=== PATIENT | female | born 1960 | race Caucasian/White ===

== ENCOUNTER 2024-07-29 22:44 | Inpatient (IN) ==
--- NOTE | 2024-07-29 23:05 | DR.SOBA ---
HPI Time Seen Time Seen by Provider: 07/29/24 23:04 HPI Comment HPI Comment: History as below. Complaints Chief Complaint Doctors Comments: Patient is 63yr old female in ER with Increasing SOB and low oxygen saturation. Patient have history of COPD on home oxygen 2 LPM. She has not been feeling well for few days. Patient have slight productive cough and congestion. She denies fever and vomiting. Chief Complaint:: Patient arrives to ED via pov with shortness of breath. Noted home oxygen to be in place at 2 lpm. Patient states she has been feeling bad over the past few days. states patients spo2 was noted to be in the 50's at home. COVID-19 Coronavirus risk:travel/contact w/high risk person: No Has patient experienced Coronavirus symptoms: Yes Coronavirus symptoms experienced: Coughing and Shortness of Breath Reviewed Nurses Notes Reviewed: Yes Source History Provided: Patient and Family Member Mode of Arrival Mode of Arrival: Wheelchair Timing Onset of Chief Complaint: 07/27/24 PMH PMH Past Medical History: Yes Past Medical History: COPD, Diabetes, Dyslipidemia, Hypertension and Hypothyroidism Past Surgical History: Yes Surgical History: Thyroidectomy Family History History of Family Medical Conditions: No Social History Does any household member use tobacco: No Alcohol Use: None Do you use any recreational Drugs:: No Lives With: Family Lives Where: Home Travel Risk Coronavirus risk:travel/contact w/high risk person: No Has patient experienced Coronavirus symptoms: Yes Coronavirus symptoms experienced: Coughing and Shortness of Breath Infectious screening In the last 2 months have you had wt loss of >10#?: NO Have you had fever, night sweats or hemotysis?: No Have you traveled outside the country in the last 6 months?: No Isolation: Standard ROS Review of Systems Constitutional: Weakness and Fatigue; negative Fever Eyes: No Symptoms Reported ENTM: No Symptoms Reported Respiratoy: Moist Cough, Short of Breath and Wheezing Cardiovascular: Chest Pain (TIGHTNESS.) Gastrointestinal/Abdominal: Nausea; negative Abdominal Pain, Diarrhea or Vomiti ng Genitourinary: No Symptoms Reported; negative Dysuria Neurological: Headache, Weakness and Dizziness Musculoskeletal: No Symptoms Reported; negative Muscle Pain Integumentary: No Symptoms Reported; negative Rash Hematologic/Lymphatic: Easy Bruising Endocrine: No Symptoms Reported; negative Increased Thirst or Increased Urine Psychiatric: No Symptoms Reported All Other Systems: Reviewed and Negative PE Vital Signs Vitals: Vital Signs Temperature 97.7 F Pulse Rate 87 Pulse Rate 93 Pulse Rate 96 Pulse Rate 103 Pulse Rate 102 Pulse Rate 104 Pulse Rate 100 Pulse Rate 106 Pulse Rate 104 Pulse Rate 115 Respiratory Rate 40 Respiratory Rate 37 Respiratory Rate 39 Respiratory Rate 36 Respiratory Rate 40 Respiratory Rate 38 Respiratory Rate 30 Respiratory Rate 22 Respiratory Rate 22 Respiratory Rate 18 Blood Pressure 108/71 Blood Pressure 143/63 Blood Pressure 173/66 Blood Pressure 135/90 Blood Pressure 135/90 Blood Pressure 135/90 O2 Sat by Pulse Oximetry 100 O2 Sat by Pulse Oximetry 100 O2 Sat by Pulse Oximetry 100 O2 Sat by Pulse Oximetry 92 O2 Sat by Pulse Oximetry 91 O2 Sat by Pulse Oximetry 90 O2 Sat by Pulse Oximetry 96 O2 Sat by Pulse Oximetry 92 O2 Sat by Pulse Oximetry 99 O2 Sat by Pulse Oximetry 52 General Limitations: No Limitations General Appearance: Alert and In Distress Head Head Exam: Normal Inspection Eyes Eye exam: Normal Appearance and PERRL; negative Scleral Icterus or Conjunctival Injection ENT ENT Exam: Normal Exam, Normal Oropharynx, Normal External Ear Exam and TM's Normal Bilaterally Neck Neck Exam: Normal Inspection; negative Trachea Midline Respiratory Respiratory Exam: Normal Lung Sounds Bilat, Accessory Muscle Use and Respiratory Distress; negative Chest Wall Tenderness Respiratory Exam: Bilateral: Wheezing and Bilateral: Rhonchi Cardiovascular Cardiovascular Exam: Regular Rate, Normal Rhythm and Normal Heart Sounds; negative Systolic Murmur or Diastolic Murmur Abdominal Exam Abdominal Exam: Normal Inspection, Normal Bowel Sounds and Soft; negative Tenderness Extremities Extremities Exam: Normal Capillary Refill and Edema (2 plus. ) Back Back Exam: negative (R) CVA Tenderness or (L) CVA Tenderness Neurologic Neurological Exam: Alert; negative Oriented X3 (oriented to person and place.) or Motor Sensory Deficit Psychiatric Psychiatric Exam: Normal Affect and Normal Mood Skin Skin Exam: Warm and Intact MDM Differential Diagnosis Differential Diagnosis: Bronchitis, CHF, COPD, Hyponatremia, Pneumonia, Pneumothorax, Respiratory Insufficiency, Sinusitis and URI COURSE Treatment Treatment: See orders done while patient was in ER. Labs, EKG and X-ray discus sed. Patient placed on bi pap. Solumedrol IV given. Patient is admitted to hospital for further management. Consultation Consultation Comments: Discussed Patient with Dr. Gu. He will admit patient. Education/Counseling Education/Counseling: Patient and Family Educated On: Treatment and Diagnosis ROR Labs Reviewed Laboratory Results Reviewed?: Yes 07/31/24 05:14 07/31/24 05:14 Laboratory: WBC 11.7 X10^3/uL (3.6-10.0) H 07/29/24 23:10 RBC 4.18 X10^6/uL (3.5-5.4) 07/29/24 23:10 Hgb 12.8 g/dL (12.0-16.0) 07/29/24 23:10 Hct 39.7 % (36.0-47.0) 07/29/24 23:10 MCV 95.0 fL (80.0-100.0) 07/29/24 23:10 MCH 30.6 pg (27.0-34.0) 07/29/24 23:10 MCHC 32.3 g/dL (33.0-35.0) L 07/29/24 23:10 RDW 14.6 % (11.6-16.5) 07/29/24 23:10 Plt Count 254 X10^3/uL (150.0-450.0) 07/29/24 23:10 MPV 8.2 fL (7.4-11.0) 07/29/24 23:10 Neut % (Auto) 83.1 % (42.0-75.0) H 07/29/24 23:10 Lymph % (Auto) 10.1 % (21.0-51.0) L 07/29/24 23:10 [place] % (Auto) 5.5 % (0.0-13.0) 07/29/24 23:10 Eos % (Auto) 0.4 % (0.9-2.9) L 07/29/24 23:10 Baso % (Auto) 0.9 % (0.2-1.0) 07/29/24 23:10 Neut # (Auto) 9.7 x10^3/uL (2.2-4.8) H 07/29/24 23:10 Lymph # (Auto) 1.2 X10^3/uL (1.3-2.9) L 07/29/24 23:10 [place] # (Auto) 0.6 x10^3/uL (0.3-0.8) 07/29/24 23:10 Eos # (Auto) 0.0 x10^3/uL (0.0-0.2) 07/29/24 23:10 Baso # (Auto) 0.1 X10^3/uL (0.0-0.1) 07/29/24 23:10 Absolute Nucleated RBC 0.0 /100WBC 07/29/24 23:10 PT 12.6 SECONDS (11.8-14.3) 07/29/24 23:10 INR Target Range - 07/29/24 23:10 INR 0.96 (0.8-1.3) 07/29/24 23:10 APTT 23.1 SECONDS (22.9-36.5) 07/29/24 23:10 PTT Comment - 07/29/24 23:10 Sample Site R rad 07/29/24 23:37 ABG pH 7.270 (7.35-7.45) L 07/29/24 23:37 ABG pCO2 76.0 mmHg (35.0-45.0) H* 07/29/24 23:37 ABG pO2 55.0 mmHg (80.0-100.0) L 07/29/24 23:37 ABG HCO3 34.9 mmol/L (22-26) H* 07/29/24 23:37 ABG O2 Saturation 83.0 % (90-100) L* 07/29/24 23:37 ABG Base Excess 5.6 mmol/L (-2.0-2.0) H 07/29/24 23:37 Augustus Test Pos 07/29/24 23:37 A-a Gradient 78.0 mmHg 07/29/24 23:37 FiO2 32.0 07/29/24 23:37 Blood Gas Comments Mervin well mf 07/29/24 23:37 Sodium 141 mmol/L (136-145) 07/29/24 23:10 Corrected Sodium 142 mmol/L (136-145) 07/29/24 23:10 Potassium 4.6 mmol/L (3.5-5.1) 07/29/24 23:10 Chloride 101 mmol/L (98-107) 07/29/24 23:10 Carbon Dioxide 36.5 mmol/L (21-32) H 07/29/24 23:10 BUN 22 mg/dL (7-18) H 07/29/24 23:10 Creatinine 1.51 mg/dL (0.55-1.02) H 07/29/24 23:10 Est GFR (MDRD) Af Amer 45 (>60) L 07/29/24 23:10 Est GFR (MDRD) Non-Af 37 (>60) L 07/29/24 23:10 Glucose 154 mg/dL (65-99) H 07/29/24 23:10 Calcium 9.4 mg/dL (8.5-10.1) 07/29/24 23:10 Corrected Calcium TNP 07/29/24 23:10 Magnesium 1.8 mg/dL (2.0-2.9) L 07/29/24 23:10 Total Bilirubin 0.20 mg/dL (0.2-1.0) 07/29/24 23:10 AST 19 Units/L (15-37) 07/29/24 23:10 ALT 23 Units/L (12-78) 07/29/24 23:10 Alkaline Phosphatase 71 Units/L (46-116) 07/29/24 23:10 Creatine Kinase 101 Units/L (26-192) 07/29/24 23:10 Troponin I High Sens 15.0 ng/L (4.0-60.0) 07/29/24 23:10 B-Natriuretic Peptide 61.8 pg/mL (0-79) 07/30/24 00:05 Total Protein 7.9 g/dL (6.4-8.2) 07/29/24 23:10 Albumin 3.8 g/dL (3.4-5.0) 07/29/24 23:10 Globulin 4.1 g/dL (2.5-4.5) 07/29/24 23:10 Albumin/Globulin Ratio 0.9 Ratio (1.1-2.1) L 07/29/24 23:10 SARS-CoV-2 (PCR) Negative (NEGATIVE) 07/29/24 23:04 Influenza Type A (PCR) Negative (NEGATIVE) 07/29/24 23:04 Influenza Type B (PCR) Negative (NEGATIVE) 07/29/24 23:04 RSV (PCR) Negative (NEGATIVE) 07/29/24 23:04 XRAY XRAY Interpreted by: Radiologist (Report noted) and Self Opioid Opioid Risk Tool Age (Kulwinder box if 16-45): No History of Preadolescent Sexual Abuse: No Total: 0 Total Score Risk Category: Low Risk Copyright: Chava SESAY predicting aberrant behaviors Discharge Plan Diagnosis Discharge Problem: Acute respiratory distress, Hypercapnia, Hypoxia, COPD exacerbation Discharge Plan Patient Disposition: 09 ADMITTED INPATIENT Condition: Stable
--- NOTE | 2024-07-29 23:22 | RAD ---
EXAM:FRONTAL VIEW CHEST X-RAYHISTORY:COPD;COMPARISON:None. .br.br.br.br.br is within normal limits.The mediastinum is unremarkable.There is no evidence of pleural effusion or gross pneumothorax.The trachea is midline.IMPRESSION:No focal consolidation is seen.The heart size is normal.THIS IS AN ELECTRONICALLY VERIFIED FINAL REPORT07/29/2024 11:18 PM - Electronically signed by Harry Mccord MD
[2024-07-29 23:25] LABS: BASOPHILS # (AUTO) 0.1 X10^3/uL (0.0-0.1); BASOPHILS % (AUTO) 0.9 % (0.2-1.0); EOSINOPHILS % (AUTO) 0.4 % (0.9-2.9); HEMATOCRIT 39.7 % (36.0-47.0); HEMOGLOBIN 12.8 g/dL (12.0-16.0); LYMPHOCYTES # (AUTO) 1.2 X10^3/uL (1.3-2.9); LYMPHOCYTES % (AUTO) 10.1 % (21.0-51.0); MEAN CORPUSCULAR HEMOGLOBIN 30.6 pg (27.0-34.0); MEAN CORPUSCULAR HGB CONC 32.3 g/dL (33.0-35.0); MEAN PLATELET VOLUME 8.2 fL (7.4-11.0); MONOCYTES # (AUTO) 0.6 x10^3/uL (0.3-0.8); MONOCYTES % (AUTO) 5.5 % (0.0-13.0); NEUTROPHILS # (AUTO) 9.7 x10^3/uL (2.2-4.8); NEUTROPHILS % (AUTO) 83.1 % (42.0-75.0); PLATELET COUNT 254 X10^3/uL (150.0-450.0); RED BLOOD COUNT 4.18 X10^6/uL (3.5-5.4); RED CELL DISTRIBUTION WIDTH 14.6 % (11.6-16.5); WHITE BLOOD COUNT 11.7 X10^3/uL (3.6-10.0)
[2024-07-29 23:32] LABS: INR 0.96 (0.8-1.3)
[2024-07-29 23:35] LABS: ALANINE AMINOTRANSFERASE 23 Units/L (12-78); ALBUMIN 3.8 g/dL (3.4-5.0); ALKALINE PHOSPHATASE 71 Units/L (46-116); ASPARTATE AMINO TRANSFERASE 19 Units/L (15-37); BLOOD UREA NITROGEN 22 mg/dL (7-18); CALCIUM 9.4 mg/dL (8.5-10.1); CARBON DIOXIDE 36.5 mmol/L (21-32); CHLORIDE 101 mmol/L (98-107); COR NA(FOR HYPERGLY) 142 mmol/L (136-145); CREATINE KINASE 101 Units/L (26-192); CREATININE 1.51 mg/dL (0.55-1.02); GLUCOSE 154 mg/dL (65-99); MAGNESIUM 1.8 mg/dL (2.0-2.9); POTASSIUM 4.6 mmol/L (3.5-5.1); SODIUM 141 mmol/L (136-145); TOTAL PROTEIN 7.9 g/dL (6.4-8.2); eGFR NON BLACK RACES 37 (>60)
[2024-07-29 23:42] LABS: ABG BASE EXCESS 5.6 mmol/L (-2.0-2.0)
[2024-07-29 23:44] LABS: ABG ALLEN TEST POS; ABG HCO3 34.9 mmol/L (22-26)
[2024-07-30] MEDS: ROCEPHIN VIAL 1 GRAM IVP SCH (00:53)
[2024-07-30] MEDS: SOLU-Medrol 125 MG VIAL IVP ONE (01:06)
[2024-07-30 01:21] LABS: ABG BASE EXCESS 7.6 mmol/L (-2.0-2.0)
[2024-07-30 01:24] LABS: ABG ALLEN TEST POS; ABG HCO3 37.1 mmol/L (22-26)
[2024-07-30] MEDS ORDERED: PATIENT'S HOME MEDICATION (Ibandronate 150 mg tablet) PO SCH (01:51)
[2024-07-30] MEDS ORDERED: SOLU-Medrol 40 MG VIAL IVP PRN (01:51)
[2024-07-30 02:23] VITALS: BMI 36.5
[2024-07-30] MEDS: NS 1,000 ML IV 1,000 ML IV SCH (02:52)
[2024-07-30] MEDS ORDERED: CONSULT PHARMACY - POTASSIUM & MAGNESIUM XX SCH (03:00)
[2024-07-30] MEDS: MAG-OX TAB PO SCH (03:02)
--- NOTE | 2024-07-30 05:56 | EKG ---
Test Reason : copd Blood Pressure : */* mmHG Vent. Rate : 84 BPM Atrial Rate : 84 BPM P-R Int : 132 ms QRS Dur : 76 ms QT Int : 364 ms P-R-T Axes : 80 70 86 degrees QTc Int : 430 ms Normal sinus rhythm with sinus arrhythmia Septal infarct , age undetermined Abnormal ECG No previous ECGs available Confirmed by Robert Arrington MD ([id number]) on 07/30/2024 7:33:02 AM Referred By: Confirmed By: Robert Arrington MD
[2024-07-30] MEDS: DUONEB 0.5 MG/3 MG (3 mL) NEB SCH (05:59)
[2024-07-30] MEDS ORDERED: FORTAZ or TAZICEF VIAL INJ 500 MG in NS 25 ML IV 25 ML IV SCH (06:00)
[2024-07-30 06:10] LABS: ABG BASE EXCESS 10.9 mmol/L (-2.0-2.0)
[2024-07-30 06:12] LABS: ABG ALLEN TEST POS
[2024-07-30 06:22] LABS: BASOPHILS % (AUTO) 0.1 % (0.2-1.0); EOSINOPHILS % (AUTO) 0.1 % (0.9-2.9); HEMATOCRIT 38.1 % (36.0-47.0); HEMOGLOBIN 12.7 g/dL (12.0-16.0); LYMPHOCYTES # (AUTO) 0.5 X10^3/uL (1.3-2.9); LYMPHOCYTES % (AUTO) 4.3 % (21.0-51.0); MEAN CORPUSCULAR HEMOGLOBIN 31.4 pg (27.0-34.0); MEAN CORPUSCULAR HGB CONC 33.4 g/dL (33.0-35.0); MEAN CORPUSCULAR VOLUME 93.8 fL (80.0-100.0); MEAN PLATELET VOLUME 8.5 fL (7.4-11.0); MONOCYTES # (AUTO) 0.1 x10^3/uL (0.3-0.8); MONOCYTES % (AUTO) 1.2 % (0.0-13.0); NEUTROPHILS # (AUTO) 10.3 x10^3/uL (2.2-4.8); NEUTROPHILS % (AUTO) 94.3 % (42.0-75.0); PLATELET COUNT 239 X10^3/uL (150.0-450.0); RED BLOOD COUNT 4.06 X10^6/uL (3.5-5.4); RED CELL DISTRIBUTION WIDTH 14.5 % (11.6-16.5); WHITE BLOOD COUNT 10.9 X10^3/uL (3.6-10.0)
[2024-07-30 06:43] LABS: BAND NEUTROPHILS % 5 % (0-10); PLATELET MORPHOLOGY COMMENT NORMAL (NORMAL)
[2024-07-30 06:44] LABS: STOMATOCYTES 1+
[2024-07-30 07:06] LABS: CALCIUM 9.6 mg/dL (8.5-10.1); CARBON DIOXIDE 34.3 mmol/L (21-32); CREATININE 1.43 mg/dL (0.55-1.02); POTASSIUM 5.3 mmol/L (3.5-5.1)
[2024-07-30] MEDS: SOLU-Medrol 125 MG VIAL ONE (07:45)
[2024-07-30] MEDS: CRESTOR TAB 10 MG PO SCH ×2 (08:32→20:42)
[2024-07-30] MEDS: ZESTRIL TAB 40 MG PO SCH (08:32)
[2024-07-30] MEDS: NORVASC TAB 5 MG PO SCH (08:32)
[2024-07-30] MEDS: FARXIGA PO SCH (08:33)
[2024-07-30] MEDS: LOVENOX INJ 40 MG SYR SC SCH (08:40)
[2024-07-30] MEDS: THYROID 90 MG PO SCH (08:55)
[2024-07-30] MEDS: PULMICORT NEB TX 0.5 MG NEB SCH (09:34)
[2024-07-30] MEDS: ZITHROMAX INJ 500 MG VIAL 500 MG in NS 250 ML IV 250 ML IV SCH (09:52)
--- NOTE | 2024-07-30 09:54 | DR.H&P ---
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 She uses 2L continuous O2 at home and noted to have low sats in the 50s. She reports feeling sick for the past few days with URI symptoms including productive cough and congestion. She recently moved in the area and is getting established with PCP, cardio and pulmonology. She also reports abdominal bloating and constipation. ER work up showed ABG with hypoxia and hypercapnia. She was placed on BiPAP. She was started on IV antibiotics, nebs and steroids. Labs showed neg trop, BNP and Resp panel. CXR was negative for acute changes. She is currently on 4L NC and is feeling better. Labs/imaging reviewed: - WBC 10.9 Hgb 12.7 K 5.3 BUN/Cr 23/1.43 Trop (-) BNP (-) -AB.36/69/79/39 -CXR: neg Plan: Wean O2 as tolerated to keep sats between 90-92%, BiPAP prn. Continue nebs, pulmicort and IS. Continue Rocephin and steroids, add Azithromycin. Follow pending cultures. Replace electrolytes prn. Repeat K level this afternoon. Resume home medications. SSI coverage. PT/OT as tolerated. Will order KUB. Monitor AM labs/imaging. Time spent for clinical assessment, reviewing labs/imaging, physical exam, decision making and documentation greater than 45 mins. Past Medical History Past Medical History: COPD, Diabetes, Dyslipidemia, Hypertension and Hypothyroidism Past Surgical History Surgical History: Thyroidectomy Family History Family Medical History: Cancer and Hypertension Social History Does patient currently use any type of tobacco product: No Type of Tobacco Use: None Does any household member use tobacco: No Alcohol Use: None Drug Use: None Medications Home Medications: Home Medications Medication Instructions Recorded Confirmed Type amlodipine 5 mg tablet 5 mg PO DAILY 07/29/24 07/29/24 History dapagliflozin propanediol 5 mg 5 mg PO DAILY 07/29/24 07/29/24 History tablet (Farxiga) fluticasone fur. 100 mcg-umeclid inhalation DAILY 07/29/24 History 62.5 mcg-vilant 25 mcg inhalat.powder (Trelegy Ellipta) ibandronate 150 mg tablet 150 mg PO MONTHLY 07/29/24 07/29/24 History lisinopril 40 mg tablet 40 mg PO DAILY 07/29/24 07/29/24 History rosuvastatin 10 mg tablet 10 mg PO DAILY 07/29/24 07/29/24 History thyroid (pork) 90 mg tablet ([employer] 90 mg PO DAILY 07/29/24 07/29/24 History Thyroid) aspirin 81 mg tablet 81 mg PO DAILY 07/30/24 07/30/24 History cholecalciferol (vitamin D3) 50 50 mcg PO HS 07/30/24 07/30/24 History mcg (2,000 unit) capsule (Vitamin D3) Allergies Allergies Allergy/AdvReac Type Severity Reaction Status Date / Time No Known Drug Allergies AdvReac Verified 07/29/24 23:04 [NKDA] Labs 07/30/24 05:22 07/30/24 05:22 Labs: Laboratory WBC 10.9 X10^3/uL (3.6-10.0) H 07/30/24 05:22 RBC 4.06 X10^6/uL (3.5-5.4) 07/30/24 05:22 Hgb 12.7 g/dL (12.0-16.0) 07/30/24 05:22 Hct 38.1 % (36.0-47.0) 07/30/24 05:22 MCV 93.8 fL (80.0-100.0) 07/30/24 05:22 MCH 31.4 pg (27.0-34.0) 07/30/24 05:22 MCHC 33.4 g/dL (33.0-35.0) 07/30/24 05:22 RDW 14.5 % (11.6-16.5) 07/30/24 05:22 Plt Count 239 X10^3/uL (150.0-450.0) 07/30/24 05:22 Plt Count Comment Adequate (ADEQUATE) 07/30/24 05:22 MPV 8.5 fL (7.4-11.0) 07/30/24 05:22 Neut % (Auto) 94.3 % (42.0-75.0) H 07/30/24 05:22 Lymph % (Auto) 4.3 % (21.0-51.0) L 07/30/24 05:22 [place] % (Auto) 1.2 % (0.0-13.0) 07/30/24 05:22 Eos % (Auto) 0.1 % (0.9-2.9) L 07/30/24 05:22 Baso % (Auto) 0.1 % (0.2-1.0) L 07/30/24 05:22 Neut # (Auto) 10.3 x10^3/uL (2.2-4.8) H 07/30/24 05:22 Lymph # (Auto) 0.5 X10^3/uL (1.3-2.9) L 07/30/24 05:22 [place] # (Auto) 0.1 x10^3/uL (0.3-0.8) L 07/30/24 05:22 Eos # (Auto) 0.0 x10^3/uL (0.0-0.2) 07/30/24 05:22 Baso # (Auto) 0.0 X10^3/uL (0.0-0.1) 07/30/24 05:22 Absolute Nucleated RBC 0.0 /100WBC 07/30/24 05:22 Total Counted 100 07/30/24 05:22 Neutrophils % (Manual) 86 % (39-76) H 07/30/24 05:22 Band Neutrophils % 5 % (0-10) 07/30/24 05:22 Lymphocytes % (Manual) 7 % (13-43) L 07/30/24 05:22 Monocytes % (Manual) 2 % (4-9) L 07/30/24 05:22 Plt Morphology Comment Normal (NORMAL) 07/30/24 05:22 RBC Morphology Abnormal (NORMAL) A 07/30/24 05:22 Stomatocytes 1+ A 07/30/24 05:22 PT 12.6 SECONDS (11.8-14.3) 07/29/24 23:10 INR Target Range - 07/29/24 23:10 INR 0.96 (0.8-1.3) 07/29/24 23:10 APTT 23.1 SECONDS (22.9-36.5) 07/29/24 23:10 PTT Comment - 07/29/24 23:10 Sample Site Rrad 07/30/24 06:10 ABG pH 7.360 (7.35-7.45) 07/30/24 06:10 ABG pCO2 69.0 mmHg (35.0-45.0) H* 07/30/24 06:10 ABG pO2 79.0 mmHg (80.0-100.0) L 07/30/24 06:10 ABG HCO3 39.0 mmol/L (22-26) H* 07/30/24 06:10 ABG O2 Saturation 95.0 % (90-100) 07/30/24 06:10 ABG Base Excess 10.9 mmol/L (-2.0-2.0) H 07/30/24 06:10 Augustus Test Pos 07/30/24 06:10 A-a Gradient 49.0 mmHg 07/30/24 06:10 FiO2 30.0 07/30/24 06:10 Blood Gas Comments Mervin abg well-mtf 07/30/24 06:10 Sodium 140 mmol/L (136-145) 07/30/24 05:22 Corrected Sodium 141 mmol/L (136-145) 07/30/24 05:22 Potassium 5.3 mmol/L (3.5-5.1) H 07/30/24 05:22 Chloride 102 mmol/L (98-107) 07/30/24 05:22 Carbon Dioxide 34.3 mmol/L (21-32) H 07/30/24 05:22 BUN 23 mg/dL (7-18) H 07/30/24 05:22 Creatinine 1.43 mg/dL (0.55-1.02) H 07/30/24 05:22 Est GFR (MDRD) Af Amer 48 (>60) L 07/30/24 05:22 Est GFR (MDRD) Non-Af 39 (>60) L 07/30/24 05:22 Glucose 123 mg/dL (65-99) H 07/30/24 05:22 POC Glucose (mg/dL) 130 mg/dL (65-99) H 07/30/24 05:14 Calcium 9.6 mg/dL (8.5-10.1) 07/30/24 05:22 Corrected Calcium TNP 07/29/24 23:10 Magnesium 1.8 mg/dL (2.0-2.9) L 07/29/24 23:10 Total Bilirubin 0.20 mg/dL (0.2-1.0) 07/29/24 23:10 AST 19 Units/L (15-37) 07/29/24 23:10 ALT 23 Units/L (12-78) 07/29/24 23:10 Alkaline Phosphatase 71 Units/L (46-116) 07/29/24 23:10 Creatine Kinase 101 Units/L (26-192) 07/29/24 23:10 Troponin I High Sens 15.0 ng/L (4.0-60.0) 07/29/24 23:10 B-Natriuretic Peptide 61.8 pg/mL (0-79) 07/30/24 00:05 Total Protein 7.9 g/dL (6.4-8.2) 07/29/24 23:10 Albumin 3.8 g/dL (3.4-5.0) 07/29/24 23:10 Globulin 4.1 g/dL (2.5-4.5) 07/29/24 23:10 Albumin/Globulin Ratio 0.9 Ratio (1.1-2.1) L 07/29/24 23:10 SARS-CoV-2 (PCR) Negative (NEGATIVE) 07/29/24 23:04 Influenza Type A (PCR) Negative (NEGATIVE) 07/29/24 23:04 Influenza Type B (PCR) Negative (NEGATIVE) 07/29/24 23:04 RSV (PCR) Negative (NEGATIVE) 07/29/24 23:04 Review of Systems Constitutional: Weakness Eyes: No Symptoms Reported ENT: No Symptoms Reported Respiratory: Cough and SOB with Excertion Cardiovascular: No Symptoms Reported Gastrointestinal: Constipation Genitourinary: No Symptoms Reported Musculoskeletal: No Symptoms Reported Skin: No Symptoms Reported Neurological: No Symptoms Reported Physical Exam Vital Signs: Vital Signs Temperature 98.0 F Temperature 97.6 F Temperature 98.0 F Pulse Rate [Brachial] 89 Pulse Rate [Brachial] 84 Pulse Rate [Brachial] 97 Pulse Rate 86 Respiratory Rate 18 Respiratory Rate 16 Respiratory Rate 16 Blood Pressure [Left Arm] 117/77 Blood Pressure [Left Arm] 123/64 Blood Pressure [Left Arm] 135/63 O2 Sat by Pulse Oximetry 95 O2 Sat by Pulse Oximetry 96 O2 Sat by Pulse Oximetry 96 Oriented: Normal Eyes: Normal Throat: Normal Respiratory: Diminished Throughout Cardiovascular: Normal Auscultation: Bowel Sounds: Normal Palpation: Normal Tenderness: Normal Skin: Decreased [place] Musculoskeletal: Normal Psychiatric: Normal Mood Description: Calm Affect: Normal Speech Pattern: Clear and Appropriate Assessment/Plan (1) Acute and chronic respiratory failure: Qualifiers: Respiratory failure complication: hypoxia and hypercapnia Qualified Code(s): J96.21 - Acute and chronic respiratory failure with hypoxia; J96.22 - Acute and chronic respiratory failure with hypercapnia Status: Acute (2) COPD exacerbation: Status: Acute (3) Hyperkalemia: Status: Acute (4) Dehydration: Status: Acute (5) HTN (hypertension): Qualifiers: Hypertension type: primary hypertension Qualified Code(s): I10 - Essential (primary) hypertension Status: Chronic (6) Hypothyroidism: Qualifiers: Hypothyroidism type: acquired Qualified Code(s): E03.9 - Hypothyroidism, unspecified Status: Chronic (7) Constipation: Qualifiers: Constipation type: slow transit constipation Qualified Code(s): K59.01 - Slow transit constipation Status: Chronic (8) Type 2 diabetes mellitus: Qualifiers: Diabetes mellitus alf insulin use: with supervisor intermediates use Diabetes mellitus complication status: with hyperglycemia Qualified Code(s): E11.65 - Type 2 diabetes mellitus with hyperglycemia; Z79.4 - longterm (current) use of insulin Status: Chronic Review H&P Reviewed: Yes Patient was examined?: Yes
[2024-07-30] MEDS: NovoLIN R (or HumuLIN R) SUBCUT PRN (10:53)
[2024-07-30] MEDS: SNACK - Diabetic Appropriate PO SCH (20:15)
[2024-07-30] MEDS: TYLENOL 325 MG TAB PO PRN (20:43)
[2024-07-30] MEDS ORDERED: XOPENEX 1.25 MG/3 ML NEBULE NEB ONE (21:03)
[2024-07-30] MEDS: XOPENEX 1.25 MG/3 ML NEBULE NEB SCH (21:32)
[2024-07-31 05:49] LABS: BASOPHILS % (AUTO) 0.2 % (0.2-1.0); EOSINOPHILS % (AUTO) 0.1 % (0.9-2.9); HEMATOCRIT 35.9 % (36.0-47.0); HEMOGLOBIN 11.7 g/dL (12.0-16.0); LYMPHOCYTES # (AUTO) 1.3 X10^3/uL (1.3-2.9); LYMPHOCYTES % (AUTO) 12.1 % (21.0-51.0); MEAN CORPUSCULAR HEMOGLOBIN 30.7 pg (27.0-34.0); MEAN CORPUSCULAR HGB CONC 32.6 g/dL (33.0-35.0); MEAN CORPUSCULAR VOLUME 94.1 fL (80.0-100.0); MEAN PLATELET VOLUME 8.8 fL (7.4-11.0); MONOCYTES # (AUTO) 0.8 x10^3/uL (0.3-0.8); MONOCYTES % (AUTO) 7.2 % (0.0-13.0); NEUTROPHILS # (AUTO) 8.6 x10^3/uL (2.2-4.8); NEUTROPHILS % (AUTO) 80.4 % (42.0-75.0); PLATELET COUNT 240 X10^3/uL (150.0-450.0); RED BLOOD COUNT 3.82 X10^6/uL (3.5-5.4); RED CELL DISTRIBUTION WIDTH 14.7 % (11.6-16.5); WHITE BLOOD COUNT 10.6 X10^3/uL (3.6-10.0)
[2024-07-31] MEDS: THYROID 90 MG PO SCH (05:49)
--- NOTE | 2024-07-31 05:52 | RAD ---
EXAM:KUBHISTORY:constipation ;COMPARISON:NoneFINDINGS:Evaluation of the abdomen demonstrates a nonobstructive bowel gas pattern. No evidence of pneumoperitoneum. No pathologic soft tissue calcification. No acute osseous abnormality.IMPRESSION:No acute abdominal process.THIS IS AN ELECTRONICALLY VERIFIED FINAL REPORT07/31/2024 5:49 AM - Electronically signed by Ector Alejo MD
[2024-07-31 06:03] LABS: ALANINE AMINOTRANSFERASE 25 Units/L (12-78); ALBUMIN 3.4 g/dL (3.4-5.0); ALKALINE PHOSPHATASE 60 Units/L (46-116); ASPARTATE AMINO TRANSFERASE 19 Units/L (15-37); BLOOD UREA NITROGEN 28 mg/dL (7-18); CALCIUM 9.1 mg/dL (8.5-10.1); CARBON DIOXIDE 36.5 mmol/L (21-32); CHLORIDE 104 mmol/L (98-107); CREATININE 1.33 mg/dL (0.55-1.02); GLUCOSE 99 mg/dL (65-99); POTASSIUM 4.3 mmol/L (3.5-5.1); SODIUM 142 mmol/L (136-145); eGFR NON BLACK RACES 43 (>60)
[2024-07-31] MEDS: SOLU-Medrol 40 MG VIAL IVP SCH (08:21)
--- NOTE | 2024-07-31 09:51 | PCM.PROG ---
Progress Note Progress Note for Day of Date of Exam: 07/31/24 Subjective Subjective: Patient seen at bedside, no acute events overnight. She is admitted for COPD exacerbation and respiratory failure. She is on 3L NC at this time. She reports having a lot of productive cough. She did ambulate to the bathroom but still feels SOB. She is on IV antibiotics and steroids. KUB was negative. Echo is pending. Labs/imaging reviewed: -WBC 10.6 Hgb 11.7 Plt 240 K 4.3 BUN/Cr 28/1.33 -KUB (-) -Sputum Cx pending Plan: Wean O2 as tolerated. Patient does use 2L at home. Continue IV antibiotics and steroids. Nebs and pulmicort prn. Follow pending cultures. Follow echo results. Continue home medications. Ambulate prn. Replace electrolytes prn. Monitor AM labs/imaging. Past Medical Family Social History Allergies: Allergies No Known Drug Allergies [NKDA] Adverse Reaction (Verified 07/29/24 23:04) Vital Signs and I&O's Vital Signs: Vital Signs Temperature 97.3 F Temperature 98.0 F Pulse Rate [Brachial] 83 Pulse Rate [Brachial] 69 Respiratory Rate 18 Respiratory Rate 18 Blood Pressure [Left Arm] 122/62 Blood Pressure [Left Arm] 126/60 O2 Sat by Pulse Oximetry 100 O2 Sat by Pulse Oximetry 97 Intake and Output: Intake & Output 07/28/24 07/29/24 07/30/24 07/31/24 23:59 23:59 23:59 23:59 Intake Total 1443 / 1443 251 / 251 Output Total 1300 / 1300 Balance 143 / 143 251 / 251 Physical Exam Oriented: Normal Eyes: Normal Throat: Normal Respiratory: Generalized, Diminished and Wheezes Cardiovascular: Normal Auscultation: Bowel Sounds: Normal Palpation: Normal Tenderness: Normal Skin: Decreased Turgur Musculoskeletal: Normal Psychiatric: Normal Mood Description: Calm Affect: Normal Speech Pattern: Clear and Appropriate Laboratory and Diagnostics 07/31/24 05:14 07/31/24 05:14 Labs: 07/30/24 09:58 Sputum - Expectorated Sputum Sputum Culture - Preliminary 07/30/24 09:58 Sputum - Expectorated Sputum - Final Laboratory WBC 10.6 X10^3/uL (3.6-10.0) H 07/31/24 05:14 RBC 3.82 X10^6/uL (3.5-5.4) 07/31/24 05:14 Hgb 11.7 g/dL (12.0-16.0) L 07/31/24 05:14 Hct 35.9 % (36.0-47.0) L 07/31/24 05:14 MCV 94.1 fL (80.0-100.0) 07/31/24 05:14 MCH 30.7 pg (27.0-34.0) 07/31/24 05:14 MCHC 32.6 g/dL (33.0-35.0) L 07/31/24 05:14 RDW 14.7 % (11.6-16.5) 07/31/24 05:14 Plt Count 240 X10^3/uL (150.0-450.0) 07/31/24 05:14 Plt Count Comment Adequate (ADEQUATE) 07/30/24 05:22 MPV 8.8 fL (7.4-11.0) 07/31/24 05:14 Neut % (Auto) 80.4 % (42.0-75.0) H 07/31/24 05:14 Lymph % (Auto) 12.1 % (21.0-51.0) L 07/31/24 05:14 Banks % (Auto) 7.2 % (0.0-13.0) 07/31/24 05:14 Eos % (Auto) 0.1 % (0.9-2.9) L 07/31/24 05:14 Baso % (Auto) 0.2 % (0.2-1.0) 07/31/24 05:14 Neut # (Auto) 8.6 x10^3/uL (2.2-4.8) H 07/31/24 05:14 Lymph # (Auto) 1.3 X10^3/uL (1.3-2.9) 07/31/24 05:14 Banks # (Auto) 0.8 x10^3/uL (0.3-0.8) 07/31/24 05:14 Eos # (Auto) 0.0 x10^3/uL (0.0-0.2) 07/31/24 05:14 Baso # (Auto) 0.0 X10^3/uL (0.0-0.1) 07/31/24 05:14 Absolute Nucleated RBC 0.1 /100WBC 07/31/24 05:14 Total Counted 100 07/30/24 05:22 Neutrophils % (Manual) 86 % (39-76) H 07/30/24 05:22 Band Neutrophils % 5 % (0-10) 07/30/24 05:22 Lymphocytes % (Manual) 7 % (13-43) L 07/30/24 05:22 Monocytes % (Manual) 2 % (4-9) L 07/30/24 05:22 Plt Morphology Comment Normal (NORMAL) 07/30/24 05:22 RBC Morphology Abnormal (NORMAL) A 07/30/24 05:22 Stomatocytes 1+ A 07/30/24 05:22 PT 12.6 SECONDS (11.8-14.3) 07/29/24 23:10 INR Target Range - 07/29/24 23:10 INR 0.96 (0.8-1.3) 07/29/24 23:10 APTT 23.1 SECONDS (22.9-36.5) 07/29/24 23:10 PTT Comment - 07/29/24 23:10 Sample Site Rrad 07/30/24 06:10 ABG pH 7.360 (7.35-7.45) 07/30/24 06:10 ABG pCO2 69.0 mmHg (35.0-45.0) H* 07/30/24 06:10 ABG pO2 79.0 mmHg (80.0-100.0) L 07/30/24 06:10 ABG HCO3 39.0 mmol/L (22-26) H* 07/30/24 06:10 ABG O2 Saturation 95.0 % (90-100) 07/30/24 06:10 ABG Base Excess 10.9 mmol/L (-2.0-2.0) H 07/30/24 06:10 Augustus Test Pos 07/30/24 06:10 A-a Gradient 49.0 mmHg 07/30/24 06:10 FiO2 30.0 07/30/24 06:10 Blood Gas Comments Mervin abg well-mtf 07/30/24 06:10 Sodium 142 mmol/L (136-145) 07/31/24 05:14 Corrected Sodium TNP 07/31/24 05:14 Potassium 4.3 mmol/L (3.5-5.1) 07/31/24 05:14 Chloride 104 mmol/L (98-107) 07/31/24 05:14 Carbon Dioxide 36.5 mmol/L (21-32) H 07/31/24 05:14 BUN 28 mg/dL (7-18) H 07/31/24 05:14 Creatinine 1.33 mg/dL (0.55-1.02) H 07/31/24 05:14 Est GFR (MDRD) Af Amer 52 (>60) L 07/31/24 05:14 Est GFR (MDRD) Non-Af 43 (>60) L 07/31/24 05:14 Glucose 99 mg/dL (65-99) 07/31/24 05:14 POC Glucose (mg/dL) 92 mg/dL (65-99) 07/31/24 05:18 Calcium 9.1 mg/dL (8.5-10.1) 07/31/24 05:14 Corrected Calcium TNP 07/31/24 05:14 Magnesium 2.3 mg/dL (2.0-2.9) 07/31/24 05:14 Total Bilirubin 0.20 mg/dL (0.2-1.0) 07/31/24 05:14 AST 19 Units/L (15-37) 07/31/24 05:14 ALT 25 Units/L (12-78) 07/31/24 05:14 Alkaline Phosphatase 60 Units/L (46-116) 07/31/24 05:14 Creatine Kinase 101 Units/L (26-192) 07/29/24 23:10 Troponin I High Sens 15.0 ng/L (4.0-60.0) 07/29/24 23:10 B-Natriuretic Peptide 61.8 pg/mL (0-79) 07/30/24 00:05 Total Protein 7.0 g/dL (6.4-8.2) 07/31/24 05:14 Albumin 3.4 g/dL (3.4-5.0) 07/31/24 05:14 Globulin 3.6 g/dL (2.5-4.5) 07/31/24 05:14 Albumin/Globulin Ratio 0.9 Ratio (1.1-2.1) L 07/31/24 05:14 SARS-CoV-2 (PCR) Negative (NEGATIVE) 07/29/24 23:04 Influenza Type A (PCR) Negative (NEGATIVE) 07/29/24 23:04 Influenza Type B (PCR) Negative (NEGATIVE) 07/29/24 23:04 RSV (PCR) Negative (NEGATIVE) 07/29/24 23:04 Resp Viral Panel (PCR) See scanned report 07/30/24 09:47 Plan (1) Acute and chronic respiratory failure: Status: Acute Qualifiers: Respiratory failure complication: hypoxia and hypercapnia Qualified Code(s): J96.21 - Acute and chronic respiratory failure with hypoxia; J96.22 - Acute and chronic respiratory failure with hypercapnia (2) COPD exacerbation: Status: Acute (3) Hyperkalemia: Status: Acute (4) Dehydration: Status: Acute (5) HTN (hypertension): Status: Chronic Qualifiers: Hypertension type: primary hypertension Qualified Code(s): I10 - Essential (primary) hypertension (6) Hypothyroidism: Status: Chronic Qualifiers: Hypothyroidism type: acquired Qualified Code(s): E03.9 - Hy pothyroidism, unspecified (7) Constipation: Status: Chronic Qualifiers: Constipation type: slow transit constipation Qualified Code(s): K59.01 - Slow transit constipation (8) Type 2 diabetes mellitus: Status: Chronic Qualifiers: Diabetes mellitus terminal manager insulin use: with terminal manager use Diabetes me llitus complication status: with hyperglycemia Qualified Code(s): E11.65 - Type 2 diabetes mellitus with hyperglycemia; Z79.4 - long-term (current) use of insulin
[2024-08-01 05:59] LABS: BASOPHILS % (AUTO) 0.2 % (0.2-1.0); HEMATOCRIT 36.9 % (36.0-47.0); HEMOGLOBIN 12.1 g/dL (12.0-16.0); LYMPHOCYTES # (AUTO) 0.6 X10^3/uL (1.3-2.9); LYMPHOCYTES % (AUTO) 4.6 % (21.0-51.0); MEAN CORPUSCULAR HEMOGLOBIN 30.6 pg (27.0-34.0); MEAN CORPUSCULAR HGB CONC 32.6 g/dL (33.0-35.0); MEAN CORPUSCULAR VOLUME 93.9 fL (80.0-100.0); MEAN PLATELET VOLUME 8.6 fL (7.4-11.0); MONOCYTES # (AUTO) 0.3 x10^3/uL (0.3-0.8); MONOCYTES % (AUTO) 2.2 % (0.0-13.0); NEUTROPHILS # (AUTO) 12.3 x10^3/uL (2.2-4.8); PLATELET COUNT 245 X10^3/uL (150.0-450.0); RED BLOOD COUNT 3.93 X10^6/uL (3.5-5.4); RED CELL DISTRIBUTION WIDTH 15.1 % (11.6-16.5); WHITE BLOOD COUNT 13.2 X10^3/uL (3.6-10.0)
[2024-08-01 06:11] LABS: ALANINE AMINOTRANSFERASE 24 Units/L (12-78); ALBUMIN 3.4 g/dL (3.4-5.0); ALKALINE PHOSPHATASE 65 Units/L (46-116); ASPARTATE AMINO TRANSFERASE 18 Units/L (15-37); BLOOD UREA NITROGEN 29 mg/dL (7-18); CALCIUM 9.2 mg/dL (8.5-10.1); CARBON DIOXIDE 34.3 mmol/L (21-32); CHLORIDE 104 mmol/L (98-107); COR NA(FOR HYPERGLY) 142 mmol/L (136-145); GLUCOSE 136 mg/dL (65-99); POTASSIUM 4.8 mmol/L (3.5-5.1); SODIUM 141 mmol/L (136-145); TOTAL PROTEIN 7.3 g/dL (6.4-8.2); eGFR NON BLACK RACES 48 (>60)
[2024-08-01 06:24] LABS: BAND NEUTROPHILS % 1 % (0-10); PLATELET MORPHOLOGY COMMENT NORMAL (NORMAL)
--- NOTE | 2024-08-01 10:46 | PCM.PROG ---
Progress Note Progress Note for Day of Date of Exam: 08/01/24 Subjective Subjective: Patient is a 63 year old female admitted for COPD exacerbation and respiratory failure. She is on 2L NC at this time. She reports improvement in her symptoms and breathing this morning. She is on IV antibiotics and steroids. Labs/imaging reviewed: -WBC 13.2, hemoglobin 12.1, platelets 245, sodium 141, potassium 4.8, creatinine 1.20, glucose 136. -AIT positive for Strep pneumoniae Plan: Wean O2 as tolerated. Patient does use 2L at home. Continue IV antibiotics and steroids. Nebs and pulmicort prn. Will have physical therapy work with patient today. Continue home medications. Ambulate prn. Replace electrolytes prn. Monitor AM labs/imaging. Past Medical Family Social History Allergies: Allergies No Known Drug Allergies [NKDA] Adverse Reaction (Verified 07/29/24 23:04) Review of Systems ROS changes noted: see HPI Vital Signs and I&O's Vital Signs: Vital Signs Temperature 97.1 F Temperature 98.0 F Pulse Rate [Brachial] 88 Pulse Rate [Brachial] 77 Pulse Rate 91 Respiratory Rate 20 Respiratory Rate 20 Blood Pressure [Left Arm] 169/77 Blood Pressure [Left Arm] 141/76 O2 Sat by Pulse Oximetry 93 O2 Sat by Pulse Oximetry 97 O2 Sat by Pulse Oximetry 97 Intake and Output: Intake & Output 07/29/24 07/30/24 07/31/24 08/01/24 23:59 23:59 23:59 23:59 Intake Total 1443 / 1443 1291 / 1291 352 / 352 Output Total 1300 / 1300 Balance 143 / 143 1291 / 1291 352 / 352 Physical Exam Oriented: Normal Eyes: Normal Throat: Normal Respiratory: Generalized and Diminished Cardiovascular: Normal Auscultation: Bowel Sounds: Normal Tenderness: Normal Skin: Decreased Turgur Musculoskeletal: Normal Psychiatric: Normal Mood Description: Calm Affect: Normal Speech Pattern: Clear and Appropriate Laboratory and Diagnostics 08/01/24 05:35 08/01/24 05:35 Labs: 07/30/24 09:58 Sputum - Expectorated Sputum Sputum Culture - Final 07/30/24 09:58 Sputum - Expectorated Sputum - Final Laboratory WBC 13.2 X10^3/uL (3.6-10.0) H 08/01/24 05:35 RBC 3.93 X10^6/uL (3.5-5.4) 08/01/24 05:35 Hgb 12.1 g/dL (12.0-16.0) 08/01/24 05:35 Hct 36.9 % (36.0-47.0) 08/01/24 05:35 MCV 93.9 fL (80.0-100.0) 08/01/24 05:35 MCH 30.6 pg (27.0-34.0) 08/01/24 05:35 MCHC 32.6 g/dL (33.0-35.0) L 08/01/24 05:35 RDW 15.1 % (11.6-16.5) 08/01/24 05:35 Plt Count 245 X10^3/uL (150.0-450.0) 08/01/24 05:35 Plt Count Comment Adequate (ADEQUATE) 08/01/24 05:35 MPV 8.6 fL (7.4-11.0) 08/01/24 05:35 Neut % (Auto) 93.0 % (42.0-75.0) H 08/01/24 05:35 Lymph % (Auto) 4.6 % (21.0-51.0) L 08/01/24 05:35 Victoria % (Auto) 2.2 % (0.0-13.0) 08/01/24 05:35 Eos % (Auto) 0.0 % (0.9-2.9) L 08/01/24 05:35 Baso % (Auto) 0.2 % (0.2-1.0) 08/01/24 05:35 Neut # (Auto) 12.3 x10^3/uL (2.2-4.8) H 08/01/24 05:35 Lymph # (Auto) 0.6 X10^3/uL (1.3-2.9) L 08/01/24 05:35 Victoria # (Auto) 0.3 x10^3/uL (0.3-0.8) 08/01/24 05:35 Eos # (Auto) 0.0 x10^3/uL (0.0-0.2) 08/01/24 05:35 Baso # (Auto) 0.0 X10^3/uL (0.0-0.1) 08/01/24 05:35 Absolute Nucleated RBC 0.0 /100WBC 08/01/24 05:35 Total Counted 100 08/01/24 05:35 Neutrophils % (Manual) 93 % (39-76) H 08/01/24 05:35 Band Neutrophils % 1 % (0-10) 08/01/24 05:35 Lymphocytes % (Manual) 3 % (13-43) L 08/01/24 05:35 Monocytes % (Manual) 3 % (4-9) L 08/01/24 05:35 Plt Morphology Comment Normal (NORMAL) 08/01/24 05:35 RBC Morphology Normal (NORMAL) 08/01/24 05:35 Stomatocytes 1+ A 07/30/24 05:22 PT 12.6 SECONDS (11.8-14.3) 07/29/24 23:10 INR Target Range - 07/29/24 23:10 INR 0.96 (0.8-1.3) 07/29/24 23:10 APTT 23.1 SECONDS (22.9-36.5) 07/29/24 23:10 PTT Comment - 07/29/24 23:10 Sample Site Rrad 07/30/24 06:10 ABG pH 7.360 (7.35-7.45) 07/30/24 06:10 ABG pCO2 69.0 mmHg (35.0-45.0) H* 07/30/24 06:10 ABG pO2 79.0 mmHg (80.0-100.0) L 07/30/24 06:10 ABG HCO3 39.0 mmol/L (22-26) H* 07/30/24 06:10 ABG O2 Saturation 95.0 % (90-100) 07/30/24 06:10 ABG Base Excess 10.9 mmol/L (-2.0-2.0) H 07/30/24 06:10 Augustus Test Pos 07/30/24 06:10 A-a Gradient 49.0 mmHg 07/30/24 06:10 FiO2 30.0 07/30/24 06:10 Blood Gas Comments Mervin abg well-mtf 07/30/24 06:10 Sodium 141 mmol/L (136-145) 08/01/24 05:35 Corrected Sodium 142 mmol/L (136-145) 08/01/24 05:35 Potassium 4.8 mmol/L (3.5-5.1) 08/01/24 05:35 Chloride 104 mmol/L (98-107) 08/01/24 05:35 Carbon Dioxide 34.3 mmol/L (21-32) H 08/01/24 05:35 BUN 29 mg/dL (7-18) H 08/01/24 05:35 Creatinine 1.20 mg/dL (0.55-1.02) H 08/01/24 05:35 Est GFR (MDRD) Af Amer 58 (>60) L 08/01/24 05:35 Est GFR (MDRD) Non-Af 48 (>60) L 08/01/24 05:35 Glucose 136 mg/dL (65-99) H 08/01/24 05:35 POC Glucose (mg/dL) 132 mg/dL (65-99) H 08/01/24 05:11 Calcium 9.2 mg/dL (8.5-10.1) 08/01/24 05:35 Corrected Calcium TNP 08/01/24 05:35 Magnesium 2.3 mg/dL (2.0-2.9) 07/31/24 05:14 Total Bilirubin 0.20 mg/dL (0.2-1.0) 08/01/24 05:35 AST 18 Units/L (15-37) 08/01/24 05:35 ALT 24 Units/L (12-78) 08/01/24 05:35 Alkaline Phosphatase 65 Units/L (46-116) 08/01/24 05:35 Creatine Kinase 101 Units/L (26-192) 07/29/24 23:10 Troponin I High Sens 15.0 ng/L (4.0-60.0) 07/29/24 23:10 B-Natriuretic Peptide 61.8 pg/mL (0-79) 07/30/24 00:05 Total Protein 7.3 g/dL (6.4-8.2) 08/01/24 05:35 Albumin 3.4 g/dL (3.4-5.0) 08/01/24 05:35 Globulin 3.9 g/dL (2.5-4.5) 08/01/24 05:35 Albumin/Globulin Ratio 0.9 Ratio (1.1-2.1) L 08/01/24 05:35 SARS-CoV-2 (PCR) Negative (NEGATIVE) 07/29/24 23:04 Influenza Type A (PCR) Negative (NEGATIVE) 07/29/24 23:04 Influenza Type B (PCR) Negative (NEGATIVE) 07/29/24 23:04 RSV (PCR) Negative (NEGATIVE) 07/29/24 23:04 Resp Viral Panel (PCR) See scanned report 07/30/24 09:47 Plan (1) Acute and chronic respiratory failure: Status: Acute Qualifiers: Respiratory failure complication: hypoxia and hypercapnia Qualified Co de(s): J96.21 - Acute and chronic respiratory failure with hypoxia; J96.22 - Acute and chronic respiratory failure with hypercapnia (2) COPD exacerbation: Status: Acute (3) Hyperkalemia: Status: Acute (4) Dehydration: Status: Acute (5) HTN (hypertension): Status: Chronic Qualifiers: Hypertension type: primary hypertension Qualified Code(s): I10 - Essential (primary) hypertension (6) Hypothyroidism: Status: Chronic Qualifiers: Hypothyroidism type: acquired Qualified Code(s): E03.9 - Hypothyroidism, unspecified (7) Constipation: Status: Chronic Qualifiers: Constipation type: slow transit constipation Qualified Code(s): K59.01 - Slow transit constipation (8) Type 2 diabetes mellitus: Status: Chronic Qualifiers: Diabetes mellitus residential insulin use: with terminal superintendent use Diabetes mellitus complication status: with hyperglycemia Qualified Code(s): E11.65 - Type 2 diabetes mellitus with hyperglycemia; Z79.4 - rn long term care (current) use of insulin
[2024-08-02 06:07] LABS: BASOPHILS # (AUTO) 0.1 X10^3/uL (0.0-0.1); BASOPHILS % (AUTO) 0.6 % (0.2-1.0); HEMATOCRIT 37.6 % (36.0-47.0); HEMOGLOBIN 12.2 g/dL (12.0-16.0); LYMPHOCYTES # (AUTO) 0.7 X10^3/uL (1.3-2.9); LYMPHOCYTES % (AUTO) 5.5 % (21.0-51.0); MEAN CORPUSCULAR HEMOGLOBIN 30.6 pg (27.0-34.0); MEAN CORPUSCULAR HGB CONC 32.5 g/dL (33.0-35.0); MEAN CORPUSCULAR VOLUME 93.9 fL (80.0-100.0); MEAN PLATELET VOLUME 8.9 fL (7.4-11.0); MONOCYTES # (AUTO) 0.4 x10^3/uL (0.3-0.8); MONOCYTES % (AUTO) 2.8 % (0.0-13.0); NEUTROPHILS % (AUTO) 91.1 % (42.0-75.0); PLATELET COUNT 250 X10^3/uL (150.0-450.0); RED CELL DISTRIBUTION WIDTH 14.9 % (11.6-16.5); WHITE BLOOD COUNT 13.1 X10^3/uL (3.6-10.0)
[2024-08-02 06:31] LABS: ALANINE AMINOTRANSFERASE 22 Units/L (12-78); ALBUMIN 3.4 g/dL (3.4-5.0); ALKALINE PHOSPHATASE 61 Units/L (46-116); ASPARTATE AMINO TRANSFERASE 19 Units/L (15-37); BLOOD UREA NITROGEN 31 mg/dL (7-18); CARBON DIOXIDE 32.4 mmol/L (21-32); CHLORIDE 104 mmol/L (98-107); COR NA(FOR HYPERGLY) 142 mmol/L (136-145); GLUCOSE 137 mg/dL (65-99); POTASSIUM 4.4 mmol/L (3.5-5.1); SODIUM 141 mmol/L (136-145); eGFR NON BLACK RACES 44 (>60)
[2024-08-02 07:00] LABS: PLATELET MORPHOLOGY COMMENT NORMAL (NORMAL)
[2024-08-02 07:49] VITALS: BP 132/69; RESP 20; TEMP 97
[2024-08-02 10:36] VITALS: PULSE 103; O2SAT 93
== END 2024-08-02 11:40 | disposition home or self-care (01) | DRG 189 ==
LOC: ER 22:44 → MED/SURG 07-30 01:08
PROVIDERS: ADMIT Family Medicine; ATTEND Family Medicine
DX: J44.1 Chronic obstructive pulmonary disease with (acute) exacerbation; R26.89 Other abnormalities of gait and mobility; Z03.818 Encounter for observation for suspected exposure to other biological agents ruled out; E83.42 Hypomagnesemia; Z79.4 Long term (current) use of insulin; E87.5 Hyperkalemia; K59.01 Slow transit constipation; E86.0 Dehydration; Z99.81 Dependence on supplemental oxygen; R94.31 Abnormal electrocardiogram [ECG] [EKG]; J96.21 Acute and chronic respiratory failure with hypoxia; I10 Essential (primary) hypertension; E11.65 Type 2 diabetes mellitus with hyperglycemia; J96.22 Acute and chronic respiratory failure with hypercapnia; E03.8 Other specified hypothyroidism; B95.3 Streptococcus pneumoniae as the cause of diseases classified elsewhere